=== PATIENT | male | born 1950 | race Caucasian/White ===

== ENCOUNTER → 2020-09-23 | Outpatient (CLI) | payer OTHER ==
--- NOTE | 2020-09-23 09:25 | REP ---
INDICATION: AAA SCREENING COMPARISON: None. TECHNIQUE: Real time mcclelland scale ultrasound examination using curved array transducer. FINDINGS: The abdominal aorta demonstrates moderate to significant calcified atheromatous plaquing without aneurysmal dilatation. Proximal aorta: 2.3 x 2.6 cm Aorta at renal arteries: 1.8 x 2.2 cm Mid aorta: 1.9 x 1.6 cm Distal aorta: 1.2 x 1.7 cm Right common iliac artery: 1.1 x 0.8 cm Left common iliac artery: 1.3 x 0.9 cm IMPRESSION: Partially calcified atherosclerotic changes. No aneurysm. <Electronically signed by Vernon Maurice > 09/23/20 0921
--- NOTE | 2020-09-23 09:30 | REP ---
INDICATION: CLAUDICATION COMPARISON: None. TECHNIQUE: Real time lucas scale and color Doppler evaluation of the bilateral lower extremity arterial vasculature using linear high frequency transducer. FINDINGS: Lucas scale and color images demonstrate significant partially calcified amounts of atheromatous plaquing with areas of narrowing but no focal stenosis or occlusion identified. Doppler interrogation demonstrates biphasic arterial wave forms bilaterally. Peak systolic velocities (cm/sec) Common femoral artery: Right 156; Left 110 Profunda femoris: Right 146; Left 88 SFA (proximal): Right 80; Left 102 SFA (mid): Right 94; Left 70 SFA (distal): Right 48; Left 67 Popliteal artery: Right 42; Left 27 SAMIR (prox.): Right 38; Left 30 Tibioperoneal trunk: Right 35; Left 33 BUSINESS OFFICE ASSOCIATE (prox.): Right 51; Left 31 BUSINESS OFFICE ASSOCIATE (distal): Right 23; Left 33 SAMIR (distal): Right 57; Left 25 IMPRESSION: Atheromatous changes with areas of narrowing but no obvious focal occlusion or stenosis. <Electronically signed by Vernon Maurice > 09/23/20 0973
== END ==
LOC: M RAD 07:43
PROVIDERS: ATTEND Family Medicine
DX: I71.4 Abdominal aortic aneurysm, without rupture (principal); I73.9 Peripheral vascular disease, unspecified

== ENCOUNTER → 2021-03-27 | Outpatient (CLI) | payer OTHER ==
[~2021-03-27] MED LIST: CEPH500C PO; ECOT81TA5 PO; GASTROGRAFIN SOLUTION 30ML (Q9963) As Ordered ONE; ISOVUE-370 76% 100ML VIAL As Ordered ONE; LISI40TA4 PO; PANT40TA29 PO; PLAV1TAB2 PO; ZOLO100T PO
== END ==
LOC: M RAD 14:02
PROVIDERS: ATTEND Internal Medicine Hematology & Oncology
DX: C61 Malignant neoplasm of prostate (principal)
CPT/HCPCS: 71260; 74177; Q9963; Q9967

== ENCOUNTER → 2021-04-13 | Outpatient (CLI) | payer OTHER ==
[~2021-04-13] MED LIST changes: -CEPH500C PO; -GASTROGRAFIN SOLUTION 30ML (Q9963) As Ordered ONE; -ISOVUE-370 76% 100ML VIAL As Ordered ONE
== END ==
LOC: M PLARAD 11:30
PROVIDERS: ATTEND Internal Medicine Hematology & Oncology
DX: C61 Malignant neoplasm of prostate (principal)
CPT/HCPCS: 78815; A9552

== ENCOUNTER → 2021-06-26 | Outpatient (CLI) | payer OTHER ==
[~2021-06-26] MED LIST changes: +CEPH500C PO; +SERT200C PO
== END ==
LOC: M LABSMTC 10:54
PROVIDERS: ATTEND Anesthesiology
DX: Z01.812 Encounter for preprocedural laboratory examination (principal); Z20.822 Contact with and (suspected) exposure to COVID-19

== ENCOUNTER 2021-07-01 12:15 | Day surgery (SDC) | payer OTHER ==
[~2021-07-01] VITALS: Ht 167.6 cm; Wt 44.9 kg
[~2021-07-01 12:15] MED LIST changes: +LIDOCAINE 2% 100MG/5ML SDV (FOR ANES.) As Ordered ONE; +NS 1,000 ML IV ONE; +fentaNYL 100 MCG/2 ML INJECTION As Ordered ONE; +propofoL 200 MG/20 ML VIAL As Ordered ONE
[2021-07-01] MEDS ORDERED: propofoL 200 MG/20 ML VIAL As Ordered ONE (15:12)
[2021-07-01 15:36] VITALS: BP 182/77
== END 2021-07-01 15:40 | disposition home or self-care (01) ==
LOC: M OPP 12:15
PROVIDERS: ATTEND Internal Medicine Gastroenterology
DX: D12.6 Benign neoplasm of colon, unspecified (principal); K62.7 Radiation proctitis; R63.4 Abnormal weight loss; Q43.8 Other specified congenital malformations of intestine; K29.70 Gastritis, unspecified, without bleeding; K20.90 Esophagitis, unspecified without bleeding; K22.2 Esophageal obstruction; I25.10 Atherosclerotic heart disease of native coronary artery without angina pectoris; I25.2 Old myocardial infarction; F41.9 Anxiety disorder, unspecified; F32.A Depression, unspecified; F17.200 Nicotine dependence, unspecified, uncomplicated; Z88.8 Allergy status to other drugs, medicaments and biological substances; Z79.899 Other long term (current) drug therapy
CPT/HCPCS: 43239; 45385; 88305; 88342; J3010

== ENCOUNTER → 2021-07-17 | Outpatient (CLI) | payer OTHER ==
[~2021-07-17] MED LIST changes: -LIDOCAINE 2% 100MG/5ML SDV (FOR ANES.) As Ordered ONE; -NS 1,000 ML IV ONE; -fentaNYL 100 MCG/2 ML INJECTION As Ordered ONE; -propofoL 200 MG/20 ML VIAL As Ordered ONE
== END ==
LOC: M LABSMTC 10:30
PROVIDERS: ATTEND Anesthesiology
DX: Z01.812 Encounter for preprocedural laboratory examination (principal); Z20.822 Contact with and (suspected) exposure to COVID-19

== ENCOUNTER 2021-07-22 06:09 | Day surgery (SDC) | payer OTHER ==
[~2021-07-22] VITALS: Ht 167.6 cm; Wt 46.8 kg
[~2021-07-22 06:09] MED LIST changes: +LIDOCAINE 1% MDV 20ML VIAL SQ PRN; +NORV5TAB PO
[2021-07-22] MEDS ORDERED: ALBUTEROL SULFATE 2.5 MG/0.5 ML INH NEB SOLN INH ONE (06:30)
[2021-07-22] MEDS ORDERED: LR 1,000 ML IV ONE (06:30)
[2021-07-22] MEDS ORDERED: LIDOCAINE 4% INJ 5ML AMP NEB ONE (06:30)
[2021-07-22] MEDS ORDERED: MIDAZOLAM INJ 2MG/2ML VIAL (J2250 PER 1MG) As Ordered ONE (06:50)
[2021-07-22] MEDS ORDERED: fentaNYL 100 MCG/2 ML INJECTION As Ordered ONE (06:51)
[2021-07-22] MEDS ORDERED: SUGAMMADEX SODIUM 500 MG/5 ML VIAL (BRIDION) As Ordered ONE (06:56)
[2021-07-22] MEDS ORDERED: propofoL 200 MG/20 ML VIAL As Ordered ONE (06:56)
[2021-07-22] MEDS ORDERED: LIDOCAINE 2% 100MG/5ML SDV (FOR ANES.) As Ordered ONE (06:56)
[2021-07-22 06:57] LABS: INR 1.05; PROTHROMBIN TIME 14.1 SECONDS (12.7-14.5)
[2021-07-22] MEDS ORDERED: ROCURONIUM BROMIDE 50 MG/5 ML VIAL As Ordered ONE (06:57)
[2021-07-22] MEDS ORDERED: dexameTHASONE 4 MG/ML 1ML VIAL (J1100 PER 1MG) As Ordered ONE (06:57)
[2021-07-22] MEDS ORDERED: ONDANSETRON 4MG/2ML VIAL As Ordered ONE (06:57)
[2021-07-22] MEDS ORDERED: THROMBIN SOLN 5,000 UNITS VIAL As Ordered ONE (07:25)
[2021-07-22] MEDS ORDERED: CETACAINE SPRAY 5GM As Ordered ONE (07:26)
[2021-07-22] MEDS ORDERED: EPINEPHrine 1MG/10ML SYRINGE 1.5IN As Ordered ONE (07:26)
[2021-07-22] MEDS ORDERED: ACETAMINOPHEN 1000MG 100ML IV BTL (OFIRMEV) (J0131 PER 10MG) As Ordered ONE (07:52)
[2021-07-22] MEDS ORDERED: PHENYLephrine 500MCG 5ML (100MCG/ML) SYRINGE As Ordered ONE (08:04)
[2021-07-22] MEDS ORDERED: MEPERIDINE INJ 25 MG/ML VIAL (J2175) IV PRN (08:55)
[2021-07-22] MEDS ORDERED: oxyCODONE 5MG TAB PO PRN (08:55)
[2021-07-22] MEDS ORDERED: fentaNYL 100 MCG/2 ML INJECTION IV PRN (08:55)
[2021-07-22] MEDS ORDERED: ONDANSETRON 4MG/2ML VIAL IV PRN (08:55)
[2021-07-22] MEDS ORDERED: LR 1,000 ML IV SCH (08:55)
[2021-07-22 09:30] VITALS: BP 10/56
== END 2021-07-22 09:35 | disposition home or self-care (01) ==
LOC: M SDC 06:09
PROVIDERS: ATTEND Internal Medicine Pulmonary Disease
DX: R59.0 Localized enlarged lymph nodes (principal); I11.9 Hypertensive heart disease without heart failure; I25.10 Atherosclerotic heart disease of native coronary artery without angina pectoris; Z95.5 Presence of coronary angioplasty implant and graft; I25.2 Old myocardial infarction; K21.9 Gastro-esophageal reflux disease without esophagitis; M19.90 Unspecified osteoarthritis, unspecified site; Z85.46 Personal history of malignant neoplasm of prostate; Z85.118 Personal history of other malignant neoplasm of bronchus and lung; Z92.3 Personal history of irradiation; R06.83 Snoring; J44.9 Chronic obstructive pulmonary disease, unspecified; F41.9 Anxiety disorder, unspecified; F32.A Depression, unspecified; Z79.899 Other long term (current) drug therapy; Z79.02 Long term (current) use of antithrombotics/antiplatelets
CPT/HCPCS: 31629; 31652; 36415; 71045; 85610; 85730; 88173; 88305; J0131; J0171; J1100; J2250; J2370; J2405; J3010

== ENCOUNTER → 2021-08-28 | Outpatient (CLI) | payer OTHER ==
[~2021-08-28] MED LIST changes: +GASTROGRAFIN SOLUTION 30ML (Q9963) As Ordered ONE; +ISOVUE-370 76% 100ML VIAL As Ordered ONE; -LIDOCAINE 1% MDV 20ML VIAL SQ PRN
== END ==
LOC: M RAD 13:51
PROVIDERS: ATTEND Specialist
DX: C34.90 Malignant neoplasm of unspecified part of unspecified bronchus or lung (principal)
CPT/HCPCS: 71260; 74177; Q9963; Q9967

== ENCOUNTER → 2021-09-14 | Outpatient (CLI) | payer OTHER ==
[~2021-09-14] MED LIST changes: -GASTROGRAFIN SOLUTION 30ML (Q9963) As Ordered ONE; -ISOVUE-370 76% 100ML VIAL As Ordered ONE
== END ==
LOC: M RAD 13:15
PROVIDERS: ATTEND Nurse Practitioner Family
DX: I65.23 Occlusion and stenosis of bilateral carotid arteries (principal)

== ENCOUNTER → 2021-10-06 | Outpatient (CLI) | payer OTHER | LOC: M RAD 08:25 | PROVIDERS: ATTEND Internal Medicine Pulmonary Disease | DX: R91.8 Other nonspecific abnormal finding of lung field (principal) ==

== ENCOUNTER → 2022-07-05 | Outpatient (CLI) | payer MEDICARE, OTHER ==
[~2022-07-05] MED LIST changes: +CLOP75TA99 PO; +ISOVUE-370 76% 100ML VIAL As Ordered ONE; -PLAV1TAB2 PO
== END ==
LOC: M RAD 14:02
PROVIDERS: ATTEND Internal Medicine
DX: C34.90 Malignant neoplasm of unspecified part of unspecified bronchus or lung (principal)
CPT/HCPCS: 70491; 71260; Q9967

== ENCOUNTER → 2022-08-12 | Outpatient (CLI) | payer MEDICARE, OTHER ==
[~2022-08-12] MED LIST changes: -ISOVUE-370 76% 100ML VIAL As Ordered ONE
== END ==
LOC: M RAD 09:09
PROVIDERS: ATTEND Nurse Practitioner Family
DX: I65.23 Occlusion and stenosis of bilateral carotid arteries (principal)
CPT/HCPCS: 93880; 94010; 99406; G0463

== ENCOUNTER 2022-09-16 10:43 | Day surgery (SDC) | payer OTHER ==
[~2022-09-16] VITALS: Ht 167.6 cm; Wt 49.1 kg
[2022-09-16] MEDS ORDERED: LR 1,000 ML IV SCH (11:30)
[2022-09-16] MEDS ORDERED: ROCURONIUM BROMIDE 50MG/5ML VIAL As Ordered ONE (14:50)
[2022-09-16] MEDS ORDERED: SUGAMMADEX SODIUM 500 MG/5 ML VIAL (BRIDION) As Ordered ONE (14:50)
[2022-09-16] MEDS ORDERED: propofoL 200 MG/20 ML VIAL As Ordered ONE (14:50)
[2022-09-16] MEDS ORDERED: MIDAZOLAM INJ 2MG/2ML VIAL As Ordered ONE (14:50)
[2022-09-16] MEDS ORDERED: LIDOCAINE 2% 100MG/5ML SDV (FOR ANES.) As Ordered ONE (14:50)
[2022-09-16] MEDS ORDERED: fentaNYL 100 MCG/2 ML INJECTION As Ordered ONE (14:50)
[2022-09-16] MEDS ORDERED: ONDANSETRON 4MG 2ML VIAL As Ordered ONE (14:58)
[2022-09-16] MEDS ORDERED: ACETAMINOPHEN 1000MG 100ML IV BAG As Ordered ONE (15:00)
[2022-09-16] MEDS ORDERED: METHYLENE BLUE 0.5% (5MG/ML) 10 ML AMP (PROVAYBLUE) As Ordered ONE (15:07)
[2022-09-16] MEDS ORDERED: OXYMETAZOLINE 0.05% NASAL SPRAY (AFRIN) As Ordered ONE (15:07)
[2022-09-16] MEDS ORDERED: LIDOCAINE W/EPINEPHRINE 1% 20ML VIAL As Ordered ONE (15:07)
[2022-09-16] MEDS ORDERED: HYDROMORPHONE HCL 0.5 MG/ 0.5 ML SYRINGE IV PRN (15:20)
[2022-09-16] MEDS ORDERED: ONDANSETRON 4MG 2ML VIAL IV PRN (15:20)
[2022-09-16] MEDS ORDERED: oxyCODONE 5MG TAB PO PRN (15:20)
[2022-09-16] MEDS ORDERED: fentaNYL 100 MCG/2 ML INJECTION IV PRN (15:20)
[2022-09-16 15:57] VITALS: BP 138/78; TEMP 97.8; O2SAT 94
== END 2022-09-16 16:15 | disposition home or self-care (01) ==
LOC: M SDC 10:43
PROVIDERS: ATTEND Otolaryngology
DX: C32.0 Malignant neoplasm of glottis (principal); I25.2 Old myocardial infarction; I25.10 Atherosclerotic heart disease of native coronary artery without angina pectoris; K21.9 Gastro-esophageal reflux disease without esophagitis; Z95.5 Presence of coronary angioplasty implant and graft; M54.2 Cervicalgia; F41.9 Anxiety disorder, unspecified; F32.A Depression, unspecified; J44.9 Chronic obstructive pulmonary disease, unspecified; G47.30 Sleep apnea, unspecified; Z85.118 Personal history of other malignant neoplasm of bronchus and lung; Z85.46 Personal history of malignant neoplasm of prostate; Z92.3 Personal history of irradiation; F17.219 Nicotine dependence, cigarettes, with unspecified nicotine-induced disorders; Z88.1 Allergy status to other antibiotic agents
CPT/HCPCS: 31535; 88305; J0131; J1100; J2250; J2405; J3010; Q9968

== ENCOUNTER 2022-10-17 13:06 | Emergency (ER) | payer OTHER ==
[~2022-10-17] VITALS: Ht 167.6 cm; Wt 46.4 kg
[~2022-10-17 13:06] MED LIST changes: +ALBU2TAB13 PO; +SPIR1CAP INH
[2022-10-17 16:59] VITALS: BP 159/80; TEMP 96.3; O2SAT 96
[2022-10-17 17:16] LABS: RSV AMPLIFICATION NEGATIVE (NEGATIVE)
[2022-10-17] MEDS ORDERED: IPRATROPIUM 0.5MG/ALBUTEROL 2.5MG INH SOL UD 3ML (DUONEB) NEB ONE (17:30)
[2022-10-17] MEDS ORDERED: predniSONE 20 MG TAB PO ONE (17:30)
[2022-10-17] MEDS ORDERED: PRED20TA PO (18:47)
[2022-10-20] MEDS ORDERED: FLUC100T3 PO (15:58)
== END 2022-10-17 19:12 | disposition left against medical advice (07) ==
LOC: M ED 13:06
DX: J90 Pleural effusion, not elsewhere classified (principal); I10 Essential (primary) hypertension; I25.2 Old myocardial infarction; F41.9 Anxiety disorder, unspecified; F32.A Depression, unspecified; Z85.46 Personal history of malignant neoplasm of prostate; J44.9 Chronic obstructive pulmonary disease, unspecified; Z85.118 Personal history of other malignant neoplasm of bronchus and lung; G47.33 Obstructive sleep apnea (adult) (pediatric); F17.200 Nicotine dependence, unspecified, uncomplicated; Z88.1 Allergy status to other antibiotic agents; Z79.51 Long term (current) use of inhaled steroids; Z79.899 Other long term (current) drug therapy
CPT/HCPCS: 71046; 87631; 99283; J7512

== ENCOUNTER → 2022-10-20 | Outpatient (CLI) | payer OTHER ==
[~2022-10-20] MED LIST changes: +FLUC100T3 PO; +PRED20TA PO
[2022-10-20 16:04] LABS: BASO # 0.1 10^3/uL (0.0-0.2); BASO % 0.3 % (0.0-1.0); EOS # 0.1 10^3/uL (0.0-0.5); EOS % 0.7 % (0.0-3.0); HEMATOCRIT 57.3 % (42.0-52.0); HEMOGLOBIN 19.1 g/dl (13.5-17.5); LYMPH # 2.4 10^3/uL (1.5-5.0); LYMPH % 16.1 % (24.0-44.0); MEAN CORPUSCULAR HEMOGLOBIN 32.2 pg (27.0-33.0); MEAN CORPUSCULAR HGB CONC 33.3 g/dl (32.0-36.5); MEAN CORPUSCULAR VOLUME 96.5 fl (80.0-96.0); MONO % 6.5 % (2.0-8.0); NEUTROPHILS # 11.1 10^3/uL (1.5-8.5); NEUTROPHILS % 75.6 % (36.0-66.0); PLATELET COUNT, AUTOMATED 275 10^3/uL (150-450); RED BLOOD COUNT 5.94 10^6/uL (4.30-6.10); WHITE BLOOD COUNT 14.7 10^3/uL (4.0-10.0)
[2022-10-20 16:16] LABS: INR 0.92; PROTHROMBIN TIME 12.6 SECONDS (12.5-14.5)
[2022-10-20 16:32] LABS: ALBUMIN 3.1 G/DL (3.2-5.2); ALKALINE PHOSPHATASE 143 U/L (46-116); ALT/SGPT < 9 U/L (7.0-40); AST/SGOT 25 U/L (<34); BILIRUBIN,TOTAL 0.5 MG/DL (0.3-1.2); BLOOD UREA NITROGEN 14 MG/DL (9-23); CALCIUM LEVEL 9.4 MG/DL (8.3-10.6); CARBON DIOXIDE LEVEL 26 MMOL/L (20-31); CHLORIDE LEVEL 98 MMOL/L (98-107); GLOMERULAR FILTRATION RATE > 60.0 (>42); GLUCOSE, FASTING 72 MG/DL (74-106); POTASSIUM SERUM 3.9 MMOL/L (3.5-5.1); SODIUM LEVEL 132 MMOL/L (136-145); TOTAL PROTEIN 6.6 G/DL (5.7-8.2)
[2022-10-20 16:33] LABS: THYROID STIMULATING HORMONE 0.439 uIU/ML (0.55-4.78)
[2022-10-20 16:34] LABS: FREE T4 1.37 NG/DL (0.89-1.76)
== END ==
LOC: M ONCR 14:03
PROVIDERS: ATTEND General Practice
DX: C32.0 Malignant neoplasm of glottis (principal); B37.0 Candidal stomatitis; R13.10 Dysphagia, unspecified; I51.9 Heart disease, unspecified; K21.9 Gastro-esophageal reflux disease without esophagitis; Z85.118 Personal history of other malignant neoplasm of bronchus and lung; Z71.2 Person consulting for explanation of examination or test findings; Z79.899 Other long term (current) drug therapy; Z87.891 Personal history of nicotine dependence; Z90.2 Acquired absence of lung [part of]; Z92.3 Personal history of irradiation
CPT/HCPCS: 31575; 36415; 80053; 84439; 84443; 85025; 85610; G0463

== ENCOUNTER → 2022-10-25 | Outpatient (CLI) | payer OTHER | LOC: M PLARAD 14:17 | PROVIDERS: ATTEND Physician Assistant Medical | DX: C32.0 Malignant neoplasm of glottis (principal) | CPT/HCPCS: 78815; A9552 ==

== ENCOUNTER 2022-10-28 10:29 | Outpatient (RCR) | payer OTHER | END 2022-11-08 | LOC: M ONCR 10:29 | PROVIDERS: ATTEND General Practice | DX: C32.0 Malignant neoplasm of glottis (principal) ==

== ENCOUNTER → 2022-12-01 | Day surgery (SDC) | payer OTHER ==
[~2022-12-01] VITALS: Ht 167.6 cm; Wt 45.6 kg
[~2022-12-01] MED LIST changes: +CLINDAMYCIN 900 MG in IV 1 EA IV ONE; +LIDOCAINE 2% 100MG/5ML SDV (FOR ANES.) As Ordered ONE; +MIDAZOLAM INJ 2MG/2ML VIAL As Ordered ONE; +NS 1,000 ML IV ONE; +ONDANSETRON 4MG 2ML VIAL As Ordered ONE; +VENTAER INH; +fentaNYL 100 MCG/2 ML INJECTION As Ordered ONE; +propofoL 200 MG/20 ML VIAL As Ordered ONE
[2022-12-02 07:15] VITALS: BP 170/73; TEMP 96.1; O2SAT 97
== END | disposition home or self-care (01) ==
LOC: M SDC 12:51
PROVIDERS: ATTEND Surgery
DX: K31.89 Other diseases of stomach and duodenum (principal); D37.05 Neoplasm of uncertain behavior of pharynx; Z43.1 Encounter for attention to gastrostomy; R63.39 Other feeding difficulties; R13.10 Dysphagia, unspecified; F17.200 Nicotine dependence, unspecified, uncomplicated; Z79.51 Long term (current) use of inhaled steroids; Z88.1 Allergy status to other antibiotic agents
CPT/HCPCS: 43246; J0737; J2250; J2405; J3010

== ENCOUNTER → 2022-12-09 | Outpatient (RCR) | payer OTHER ==
[~2022-12-09] MED LIST changes: -CLINDAMYCIN 900 MG in IV 1 EA IV ONE; -LIDOCAINE 2% 100MG/5ML SDV (FOR ANES.) As Ordered ONE; -MIDAZOLAM INJ 2MG/2ML VIAL As Ordered ONE; -NS 1,000 ML IV ONE; -ONDANSETRON 4MG 2ML VIAL As Ordered ONE; +OXYC1SOL3 PO; -fentaNYL 100 MCG/2 ML INJECTION As Ordered ONE; -propofoL 200 MG/20 ML VIAL As Ordered ONE
== END ==
LOC: M ONCR 11-17 08:47
PROVIDERS: ATTEND General Practice
DX: Z51.0 Encounter for antineoplastic radiation therapy (principal); C32.0 Malignant neoplasm of glottis

== ENCOUNTER → 2023-01-19 | Outpatient (CLI) | payer OTHER ==
[~2023-01-19] MED LIST changes: +DEXA4TA PO; +METO5TAB2 PO
== END ==
LOC: M ONCR 08:20
PROVIDERS: ATTEND General Practice
DX: R63.4 Abnormal weight loss (principal); Z93.1 Gastrostomy status

== ENCOUNTER → 2023-02-23 | Outpatient (CLI) | payer OTHER | LOC: M ONCR 08:22 | PROVIDERS: ATTEND General Practice | DX: Z01.89 Encounter for other specified special examinations (principal); Z92.3 Personal history of irradiation; Z93.1 Gastrostomy status ==

== ENCOUNTER → 2023-03-28 | Outpatient (CLI) | payer OTHER | LOC: M PLARAD 07:45 | PROVIDERS: ATTEND Otolaryngology | DX: C32.0 Malignant neoplasm of glottis (principal) | CPT/HCPCS: 78815; A9552 ==

== ENCOUNTER → 2023-06-06 | Outpatient (CLI) | payer OTHER | LOC: M RAD 14:15 | PROVIDERS: ATTEND Nurse Practitioner Family | DX: I65.23 Occlusion and stenosis of bilateral carotid arteries (principal) ==

== ENCOUNTER → 2023-06-24 | Outpatient (CLI) | payer OTHER | LOC: M ONCR 10:40 | PROVIDERS: ATTEND General Practice | DX: Z08 Encounter for follow-up examination after completed treatment for malignant neoplasm (principal); Z85.21 Personal history of malignant neoplasm of larynx; Z71.2 Person consulting for explanation of examination or test findings; Z77.098 Contact with and (suspected) exposure to other hazardous, chiefly nonmedicinal, chemicals; Z79.899 Other long term (current) drug therapy; Z85.46 Personal history of malignant neoplasm of prostate; Z85.118 Personal history of other malignant neoplasm of bronchus and lung; Z87.891 Personal history of nicotine dependence; Z88.1 Allergy status to other antibiotic agents; Z93.1 Gastrostomy status; Z92.3 Personal history of irradiation | CPT/HCPCS: 31575; G0463 ==